=== PATIENT | female | born 1975 | race Caucasian/White ===

== ENCOUNTER 2021-08-05 12:20 | Emergency (ER) | payer BC ==
[2021-08-05 12:55] LABS: Absolute Lymphocytes (CBC) 2.3 K/uL (0.7-4.9); Hematocrit 43.8 % (36.0-45.0); Lymphocytes % 38.8 % (15.3-44.8); MPV 6.5 fL (7.6-11.3); RBC Red Blood Cell Count 4.58 M/uL (3.86-4.86)
[2021-08-05 12:57] LABS: Protime INR 0.89
[2021-08-05 13:15] LABS: ALT/SGPT 19 U/L (12-78); AST/SGOT 13 U/L (15-37); Albumin 3.9 g/dL (3.4-5.0); Alkaline Phosphatase 51 U/L (45-117); BUN Blood Urea Nitrogen 10 mg/dL (7-18); Bicarbonate 29 mmol/L (21-32); Bilirubin Direct < 0.1 mg/dL (0-0.2); Bilirubin Total 0.3 mg/dL (0.2-1.0); Glucose Level 94 mg/dL (74-106); NT PRO-BNP 10 pg/mL (<125); Potassium 3.2 mmol/L (3.5-5.1); Protein, Total 7.3 g/dL (6.4-8.2); Sodium Level 142 mmol/L (136-145)
--- NOTE | 2021-08-05 13:21 | RAD REPORT ---
EXAM DESCRIPTION: RAD - Chest Single View - 08/05/2021 1:15 pm CLINICAL HISTORY: CHEST PAIN COMPARISON: No comparisons FINDINGS: Lines: None. Lungs: No evidence of edema or pneumonia. Pleural: No significant pleural effusions or pneumothorax. Cardiac: The heart size is within normal limits. Bones: No acute fractures. Other: IMPRESSION: No acute cardiopulmonary disease.
[2021-08-05] MEDS ORDERED: ONDANSETRON 4 MG/2 ML VIAL ONE (13:23)
[2021-08-05] MEDS ORDERED: KETOROLAC 30 MG/ML INJ ONE (13:23)
--- NOTE | 2021-08-05 13:51 | RAD REPORT ---
EXAM DESCRIPTION: CT - Chest For Pe Angio - 08/05/2021 1:31 pm CLINICAL HISTORY: PALPITATIONS COMPARISON: No comparisons FINDINGS: Chest Wall: No suspicious thyroid nodules or pathologic lymphadenopathy. Lungs: No acute abnormality. Pleura: No significant effusions or pneumothorax. Mediastinum/meliton: No pathologic lymphadenopathy. Pulmonary arteries/Aorta: No filling defect identified. No aortic aneurysm. Heart: No significant pericardial effusion. Normal heart size. Upper abdomen: No acute abnormality. Partial gastrectomy. Small hiatal hernia with thickened distal e sophagus. Bones: No acute abnormality. All CT scans are performed using dose optimization technique as appropriate and may include automated exposure control or mA/KV adjustment according to patient size. IMPRESSION: Negative for pulmonary embolism. No other acute findings are present within the chest. H iatal hernia with thickened distal esophagus that may reflect esophagitis. Status post partial gastre ctomy.
--- NOTE | 2021-08-05 14:27 | EDPHYS ---
Physician Documentation [facility] Name: Amina Christianson Age: 45 yrs Sex: Female : 1975 Arrival Date: 08/05/2021 Time: 12:22 Bed 27 Private MD: ED Physician Caryn Castanon HPI: 08/05 13:21 This 45 yrs old Female presents to ER via Ambulatory with complaints of Chest Pain. sp3 13:22 45-year-old female with a history of gastric sleeve surgery, hiatal hernia, sp3 cholecystectomy, and negative heart catheterization in 2019 now presents with a 2-day history of left-sided chest pain extending into her left shoulder and left arm is described as squeezing but yet sharp in nature. Pain comes and goes and is currently present but not in its highest intensity. Patient denies headache, neck pain, fever, dyspnea, cough/URI symptoms, vomiting, diarrhea, abdominal pain, melena, syncope, near syncope, neuro symptoms, rash, known sick contacts, travel history, or any other symptoms or ROS at this time.. 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 - Social history:: Smoking status: Patient reports the use of cigarette tobacco products, smokes one pack cigarettes per day. ROS: 13:24 Constitutional: Negative for fever, chills, and weight loss, Eyes: Negative for injury, sp3 pain, redness, and discharge, ENT: Negative for injury, pain, and discharge, Neck: Negative for injury, pain, and swelling, Respiratory: Negative for shortness of breath, cough, wheezing, and pleuritic chest pain, Abdomen/GI: Negative for abdominal pain, nausea, vomiting, diarrhea, and constipation, Back: Negative for injury and pain, MS/Extremity: Negative for injury and deformity, Skin: Negative for injury, rash, and discoloration, Neuro: Negative for headache, weakness, numbness, tingling, and seizure, Psych: Negative for depression, anxiety, suicide ideation, homicidal ideation, and hallucinations, Allergy/Immunology: Negative for hives, rash, and allergies, Endocrine: Negative for neck swelling, polydipsia, polyuria, polyphagia, and marked weight changes. 13:24 All other systems are negative. Exam: 13:25 Constitutional: This is a well developed, well nourished patient who is awake, alert, sp3 and in no acute distress. Head/Face: Normocephalic, atraumatic. Eyes: Pupils equal round and reactive to light, extra-ocular motions intact. Lids and lashes normal. Conjunctiva and sclera are non-icteric and not injected. Cornea within normal limits. Periorbital areas with no swelling, redness, or edema. ENT: Nares patent. No nasal discharge, no septal abnormalities noted. External auditory canals are clear. Oropharynx with no redness, swelling, or masses, exudates, or evidence of obstruction, uvula midline. Mucous membranes moist. Neck: Trachea midline, no thyromegaly or masses palpated, and no cervical lymphadenopathy. Supple, full range of motion without nuchal rigidity, or vertebral point tenderness. No Meningismus. Chest/axilla: Normal chest wall appearance and motion. Nontender with no deformity. No lesions are appreciated. Cardiovascular: Regular rate and rhythm with a normal S1 and S2. No gallops, murmurs, or rubs. Normal PMI, no JVD. No pulse deficits. Respiratory: Lungs have equal breath sounds bilaterally, clear to auscultation and percussion. No rales, rhonchi or wheezes noted. No increased work of breathing, no retractions or nasal flaring. Abdomen/GI: Soft, non-tender, with normal bowel sounds. No distension or tympany. No guarding or rebound. No evidence of tenderness throughout. Back: No spinal tenderness. No costovertebral tenderness. Full range of motion. MS/ Extremity: Pulses equal, no cyanosis. Neurovascular intact. Full, normal range of motion. Neuro: Awake and alert, GCS 15, oriented to person, place, time, and situation. Cranial nerves II-XII grossly intact. Motor strength 5/5 in all extremities. Sensory grossly intact. Cerebellar exam normal. Normal gait. Psych: Awake, alert, with orientation to person, place and time. Behavior, mood, and affect are within normal limits. 13:25 ECG was reviewed by the Attending Physician. EKG demonstrates normal sinus rhythm at 97 bpm with normal intervals, normal QRS, normal axis, normal ST/T-segment's and no evidence of ischemia. Vital Signs: 12:24 Weight 72.57 kg; Height 5 ft. 4 in. (162.56 cm); Pain 7/10; ap3 12:28 BP 128 / 78; Pulse 104; Resp 18; Temp 99.9; Pulse Ox 100% ; ap3 12:40 BP 110 / 71; Pulse 104; Resp 13; Pulse Ox 96% on R/A; Pain 8/10; ld1 14:05 BP 108 / 96; Pulse 86; Resp 14; Pulse Ox 99% on R/A; ld1 12:24 Body Mass Index 27.46 (72.57 kg, 162.56 cm) ap3 MDM: 13:18 Patient medically screened. sp3 13:25 Data reviewed: vital signs, nurses notes. ED course: 45-year-old female with likely sp3 benign chest pain. Differential diagnosis includes pleurisy, GI disturbance, pulmonary embolism, ACS, infectious etiology in the lungs, functional chest pain. I am less suspicious of the more critical diagnoses and again patient likely has a benign source for her symptoms. Work-up will include CT scan of the chest, laboratory values, ketorolac IV, Zofran IV, and general observation.. 14:26 ED course: Full work-up is negative including CT chest that shows no pulmonary sp3 embolism, pneumonia, or other abnormality. Patient symptoms are improved with the medications given. Will discharge patient home with as needed follow-up with her senior advisor and PCP. Patient has no acute emergency at this time.. 08/05 12:34 Order name: Basic Metabolic Panel sp3 08/05 12:34 Order name: CBC with Diff; Complete Time: 14:26 sp3 08/05 12:34 Order name: LFT's sp3 08/05 12:34 Order name: Magnesium sp3 08/05 12:34 Order name: NT PRO-BNP sp3 08/05 12:34 Order name: PT-INR; Complete Time: 14: sp3 08/05 12:34 Order name: Troponin HS sp3 08/05 12:34 Order name: XRAY Chest (1 view); Complete Time: 14:26 sp3 08/05 12:34 Order name: EKG; Complete Time: 12:35 sp3 08/05 12:34 Order name: Cardiac monitoring; Complete Time: 12:39 sp3 08/05 13:17 Order name: CT Chest For PE Angio; Complete Time: 14:26 sp3 08/05 13:32 Order name: COVID-19 SARS RT PCR (Document "Date of Onset" if Symptomatic) 08/05 12:34 Order name: EKG - Nurse/Tech; Complete Time: 12:40 sp3 08/05 12:34 Order name: IV Saline Lock; Complete Time: 12:44 sp3 08/05 12:34 Order name: Labs collected and sent; Complete Time: 12:44 sp3 08/05 12:34 Order name: O2 Per Protocol; Complete Time: 12:39 sp3 08/05 12:34 Order name: O2 Sat Monitoring; Complete Time: 12:39 sp3 Administered Medications: 13:24 Drug: Ketorolac 30 mg Route: IVP; Site: right antecubital; ld1 13:24 Drug: Zofran (Ondansetron) 4 mg Route: IVP; Site: right antecubital; ld1 Disposition Summary: 08/05/21 14:27 Discharge Ordered Location: Home sp3 Condition: Stable sp3 Diagnosis - Chest pain, unspecified sp3 Discharge Instructions: - Discharge Summary Sheet sp3 - Nonspecific Chest Pain, Adult sp3 Forms: - Medication Reconciliation Form sp3 - Thank You Letter sp3 - Antibiotic Education sp3 - Prescription Opioid Use sp3 Prescriptions: - Diclofenac Sodium 75 mg Oral Tablet Sustained Release - take 1 tablet by ORAL route 2 times per day; 30 tablet; Refills: 0, Product sp3 Selection Permitted Signatures: Dispatcher [employer] Chelsey Lynne RN RN [email or web address] Barbra Rice RN RN ld1 Caryn Castanon MD MD sp3
--- NOTE | 2021-08-05 14:27 | ER ---
Nurse's Notes [facility] Name: Amina Christianson Age: 45 yrs Sex: Female : 1975 Arrival Date: 08/05/2021 Time: 12:22 Bed 27 Private MD: Diagnosis: Chest pain, unspecified Presentation: 08/05 12:24 Chief complaint: Patient states: chest pain since 1100; has had heart cath in 2019. ap3 endorses mid sternal chest pain that rdiates to back and neck. Coronavirus screen: Vaccine status: Patient reports receiving the 2nd dose of the covid vaccine. Client denies travel out of the [place] in the last 14 days. At this time, the client does not indicate any symptoms associated with coronavirus-19. Ebola Screen: Patient negative for fever greater than or equal to 101.5 degrees Fahrenheit, and additional compatible Ebola Virus Disease symptoms Patient denies exposure to infectious person. Patient denies travel to an Ebola-affected area in the 21 days before illness onset. Initial Sepsis Screen: Does the patient meet any 2 criteria? No. Patient's initial sepsis screen is negative. Does the patient have a suspected source of infection? No. Patient's initial sepsis screen is negative. Risk Assessment: Do you want to hurt yourself or someone else? Patient reports no desire to harm self or others. Onset of symptoms was August 05, 2021. 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 - Social history:: Smoking status: Patient reports the use of cigarette tobacco products, smokes one pack cigarettes per day. Screenin:40 Abuse screen: Denies threats or abuse. Denies injuries from another. Nutritional ld1 screening: No deficits noted. Tuberculosis screening: No symptoms or risk factors identified. Fall Risk None identified. Assessment: 12:40 General: Appears in no apparent distress. comfortable, Behavior is cooperative, ld1 anxious. Pain: Complains of pain in chest Pain radiates to back and neck Pain currently is 8 out of 10 on a pain scale. Quality of pain is described as pressure, throbbing, Pain began 2 hours ago. Is intermittent. Neuro: Level of Consciousness is awake, alert, obeys commands, Oriented to person, place, time, situation. Cardiovascular: Capillary refill < 3 seconds Patient's skin is warm and dry. Rhythm is sinus tachycardia. Respiratory: Airway is patent Respiratory effort is even, unlabored, Respiratory pattern is regular, symmetrical. GI: Abdomen is flat, non-distended. : No signs and/or symptoms were reported regarding the genitourinary system. EENT: No signs and/or symptoms were reported regarding the EENT system. Derm: No signs and/or symptoms reported regarding the dermatologic system. Musculoskeletal: No signs and/or symptoms reported regarding the musculoskeletal system. Vital Signs: 12:24 Weight 72.57 kg; Height 5 ft. 4 in. (162.56 cm); Pain 7/10; ap3 12:28 BP 128 / 78; Pulse 104; Resp 18; Temp 99.9; Pulse Ox 100% ; ap3 12:40 BP 110 / 71; Pulse 104; Resp 13; Pulse Ox 96% on R/A; Pain 8/10; ld1 14:05 BP 108 / 96; Pulse 86; Resp 14; Pulse Ox 99% on R/A; ld1 12:24 Body Mass Index 27.46 (72.57 kg, 162.56 cm) ap3 ED Course: 12:22 Patient arrived in ED. as 12:27 Triage completed. ap3 12:28 Arm band placed on right wrist. ap3 12:31 Barbra Rice, EVAN is Primary Nurse. ld1 12:34 Caryn Castanon MD is Attending Physician. sp3 12:40 Patient has correct armband on for positive identification. Placed in gown. Bed in low ld1 position. Call light in reach. Side rails up X2. biochemistry teacher on. Pulse ox on. NIBP on. Door closed. Noise minimized. Warm blanket given. 12:40 No provider procedures requiring assistance completed. Patient maintains SpO2 ld1 saturation greater than 95% on room air. 12:47 Inserted saline lock: 20 gauge in right antecubital area, using aseptic technique. ld1 Blood collected. 13:15 XRAY Chest (1 view) In Process Unspecified. EDMS 13:31 CT Chest For PE Angio In Process Unspecified. EDMS 13:40 COVID-19 SARS RT PCR (Document "Date of Onset" if Symptomatic) Sent. ld1 14:33 IV discontinued, intact, bleeding controlled, No redness/swelling at site. ld1 Administered Medications: 13:24 Drug: Ketorolac 30 mg Route: IVP; Site: right antecubital; ld1 13:24 Drug: Zofran (Ondansetron) 4 mg Route: IVP; Site: right antecubital; ld1 Outcome: 14:27 Discharge ordered by . sp3 14:33 Discharged to home ambulatory, with family. ld1 14:33 Condition: stable 14:33 Discharge instructions given to patient, Instructed on discharge instructions, follow up and referral plans. medication usage, Demonstrated understanding of instructions, follow-up care, medications, Prescriptions given X 1. 14:34 Patient left the ED. ld1 Signatures: Dispatcher [employer] EDMS Tangela Armijo Amanda RN RN ap3 Barbra Rice RN RN ld1 Caryn Castanon MD MD sp3
[2021-08-05 14:48] VITALS: TEMP 99.9
[2021-08-05 14:51] VITALS: BP 108/96; O2SAT 99
[2021-08-05 18:25] LABS: Magnesium 1.8
== END 2021-08-05 14:34 | disposition home or self-care (01) ==
LOC: ER 12:20
DX: R07.9 Chest pain, unspecified (principal); Z20.822 Contact with and (suspected) exposure to COVID-19; F17.210 Nicotine dependence, cigarettes, uncomplicated; Z88.5 Allergy status to narcotic agent; Z88.8 Allergy status to other drugs, medicaments and biological substances
CPT/HCPCS: 93005; 85025; 80048; 36415; 83735; 85610; 80076; 84484; 83880; 71275; 71045; 96375; 96374; 99285; U0003; Q9967; J2405

== ENCOUNTER 2024-03-31 17:30 | Emergency (ER) | payer BC, OTHER ==
[2024-03-31] MEDS ORDERED: MORPHINE 4 MG/ML SYR ONE ×2 (18:16→21:03)
[2024-03-31] MEDS ORDERED: ONDANSETRON 4 MG/2 ML VIAL ONE ×2 (18:16→21:06)
[2024-03-31 18:28] LABS: Specific Gravity 1.023 (1.005-1.030); Urine Bacteria <20 /HPF (<20); Urine Bilirubin NEGATIVE (Negative); Urine Blood Trace (Negative); Urine Clarity Extremely Turbid (Clear); Urine Color Light-Yellow (Yellow); Urine Culture Reflex Order NOT NEEDED; Urine Glucose NEGATIVE (Negative); Urine Ketones NEGATIVE (Negative); Urine Microscopic Reflex YN ORDER UMIC; Urine Mucus 1+ /HPF (None Seen); Urine Nitrite NEGATIVE (Negative); Urine Protein NEGATIVE (Negative); Urine RBC <5 /HPF (None Seen); Urine Urobilinogen Normal (Normal); Urine WBC <5 /HPF (<5); Urine pH 5.5 (5.0-7.0)
--- NOTE | 2024-03-31 18:35 | RAD REPORT ---
EXAMINATION: ONE VIEW CHEST XR CLINICAL INDICATION: Female, 48 years old.,CHEST PAIN TECHNIQUE: Frontal chest projection is submitted. Examination is limited by patient positioning and t echnique. COMPARISON: 08/05/2021 FINDINGS: The lungs are well inflated and clear. No pneumothorax or sizable effusion. The heart is normal in s ize. IMPRESSION: No acute intrathoracic abnormalities.
--- NOTE | 2024-03-31 18:35 | RAD REPORT ---
EXAMINATION: Extrem Venous W Compress [employer] CLINICAL INDICATION: [facility] MAIN PAIN Bed Name: 14 N TECHNIQUE: Complete bilateral duplex sonography of the BILATERAL lower extremity veins was performed. The examination included compression for vein patency, color Doppler imaging and flow augmentation in response to distal compression of the distal external iliac, common femoral, femoral, popliteal, t ibial, and great and small saphenous veins. COMPARISON: No prior exam. FINDINGS: Duplex sonography testing of the veins of the BILATERAL lower extremity was performed. Color flow marisabel ging shows all veins to be compressible with [id number] color filling. Pulsatile and phasic flow is present within all lower extremity deep and superficial veins examined. IMPRESSION: There is no deep vein or superficial vein thrombosis.
[2024-03-31 18:52] LABS: SARS-CoV-2 Antigen CONTROL BLUE LINE VIS/BG OK; SARS-CoV-2 Antigen Rapid Res Negative (Negative)
[2024-03-31 18:54] LABS: D-Dimer 0.623 FEUug/mL (0-0.500); PT Prothrombin Time 11.2 SECONDS (9.4-12.5)
[2024-03-31 18:56] LABS: Absolute Eosinophils 0.3 K/uL (0-0.5); Absolute Lymphocytes (CBC) 2.2 K/uL (0.7-4.9); Absolute Monocytes 0.3 K/uL (0.1-1.3); Absolute Neutrophil 4.1 K/uL (1.8-8.0); Basophils % 0.7 % (0-1.3); Hematocrit 37.3 % (36.0-45.0); Hemoglobin 12.7 g/dL (12.0-15.0); Lymphocytes % 31.4 % (15.3-44.8); MCH 31.8 pg (27.0-35.0); MCV 93.7 fL (80-100); MPV 6.6 fL (7.6-11.3); Monocytes % 4.1 % (3.3-12.3); Neutrophils % 58.8 % (41.7-73.7); Nucleated RBC Absolute Count 0.1 (0-0); Nucleated Red Blood Cells % 0.9 % (0-0); Platelets 460 thou/uL (152-406); RBC Red Blood Cell Count 3.98 M/uL (3.86-4.86); Red Cell Distribution Width 14.3 % (12.1-15.2)
[2024-03-31 19:03] LABS: ALT/SGPT 29 U/L (13-56); AST/SGOT 24 U/L (15-37); Albumin 3.5 g/dL (3.4-5.0); Albumin/Globulin Ratio 0.9 (1.1-1.8); Alkaline Phosphatase 49 U/L (45-117); Anion Gap 8.6 mEq/L (5.0-15.0); BUN Blood Urea Nitrogen 9 mg/dL (7-18); Bicarbonate 27 mEq/L (21-32); Bilirubin Total 0.3 mg/dL (0.2-1.0); Creatine Phosphokinase 53 U/L (26-192); Globulin 3.7 g/dL (2.3-3.5); Glomerular Filtration Rate 108 ml/min (=/>90); Glucose Level 86 mg/dL (74-106); Lipase 22 U/L (13-75); Magnesium 1.8 mg/dL (1.6-2.4); NT PRO-BNP 96 pg/mL (<125); Potassium 3.6 mEq/L (3.5-5.1); Protein, Total 7.2 g/dL (6.4-8.2); Sodium Level 139 mEq/L (136-145)
[2024-03-31 19:13] LABS: Bilirubin Direct < 0.2 mg/dL (0-0.2); Bilirubin Indirect, Calculated 0.1 mg/dL (0.2-0.8)
[2024-03-31] MEDS ORDERED: NA CHLORIDE 0.9% 1,000 ML ONE (19:18)
[2024-03-31] MEDS ORDERED: ASPIRIN 81 MG CHEWABLE TABLET ONE (19:18)
[2024-03-31] MEDS ORDERED: METHYLPREDNISOLONE 125 MG INJ ONE (20:25)
[2024-03-31] MEDS ORDERED: KETOROLAC 30 MG/ML INJ ONE (20:25)
--- NOTE | 2024-03-31 20:47 | RAD REPORT ---
EXAM: Chest For Pe Angio TECHNIQUE: CT angiogram of the chest was performed following intravenous contrast administration, inc luding sagittal and coronal as well as maximum intensity projection reformats. One or more of the following dose reduction techniques were used: Automated exposure control, adjustment of the mA and k V according to patient size, and iterative reconstruction. Unless otherwise specified, incidental findings do not require dedicated imaging follow-up. INDICATION: CHEST PAIN, SOB COMPARISON: Chest radiograph of the same day. CT angiogram chest 08/05/2021. FINDINGS: LINES/TUBES: None. PULMONARY ARTERIES: Main pulmonary arteries are normal in caliber. No filling defects within the pul monary arteries to suggest pulmonary embolus. LUNGS AND AIRWAYS: Subtle central left upper lobe, and to lesser extent upper segment left lower lobe patchy groundglass opacities. The central airways are normal without focal abnormality. PLEURA: No effusion or pneumothorax. HEART AND MEDIASTINUM: The visualized thyroid gland is normal. No mediastinal, hilar, or axillary lym phadenopathy. Heart is unremarkable. No pericardial effusion. SOFT TISSUES AND BONES: No acute osseous abnormality. No significant soft tissue finding. UPPER ABDOMEN: Sequelae of gastric bypass. IMPRESSION: No evidence of acute central pulmonary emboli. Left lung patchy groundglass opacities. These raise concern for multifocal pneumonitis.
--- NOTE | 2024-03-31 21:48 | EDPHYS ---
Physician Documentation [facility] Name: Amina Christianson Age: 48 yrs Sex: Female : 1975 Arrival Date: 03/31/2024 Time: 17:30 Bed 14 Private MD: ED Physician Loc Villar HPI: 03/31 18:00 This 48 yrs old Female presents to ER via Ambulatory with complaints of Chest Pain, cp Shortness Of Breath, Vomiting. 18:00 The patient or guardian reports chest pain that is located primarily in the anterior cp chest wall, mid chest. Onset: patient reports symptoms started with sudden chills, shortness of breath this past Monday. Seen at [facility] and diagnosed with pneumonia. Currently taking prescribed antibiotics but was call and told to discontinue. Patient was also diagnosed with uti. Denies cough, fever. 18:00 The chest pain is described as aching. Duration: The patient or guardian reports a cp single episode, that is still ongoing, and worsening. 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 - Infectious Disease History:: Denies. - Social history:: Smoking status: Patient reports the use of cigarette tobacco products, Reported history of juuling and/or vaping. ROS: 18:05 Constitutional: Negative for body aches, chills, fever, poor PO intake, cp 18:05 Eyes: Negative for injury, pain, redness, and discharge, cp 18:05 Cardiovascular: Positive for chest pain, 18:05 Respiratory: Positive for shortness of breath, Negative for cough, wheezing, 18:05 Abdomen/GI: Positive for nausea and vomiting, 18:05 Back: Positive for radiated pain, Exam: 17:48 ECG was reviewed by the Attending Physician. cp 18:10 Constitutional: The patient appears in no acute distress, alert, awake, cp non-diaphoretic, non-toxic, well developed, well nourished, uncomfortable, 18:10 Head/Face: Normocephalic, atraumatic. cp 18:10 Eyes: Periorbital structures: appear normal, Conjunctiva: normal, no exudate, no injection, Sclera: no appreciated abnormality, Lids and lashes: appear normal, bilaterally, 18:10 ENT: External ear(s): are unremarkable, Nose: is normal, Mouth: Lips: moist, Oral mucosa: pink and intact, moist, Posterior pharynx: Airway: no evidence of obstruction, patent, erythema, is not appreciated, exudate, is not appreciated, 18:10 Chest/axilla: Inspection: normal, 18:10 Cardiovascular: Rate: normal, Rhythm: regular, Edema: is not appreciated, JVD: is not appreciated, 18:10 Respiratory: the patient does not display signs of respiratory distress, Respirations: normal, no use of accessory muscles, no retractions, labored breathing, is not present, Breath sounds: are clear throughout, no decreased breath sounds, no stridor, no wheezing, 18:10 Abdomen/GI: Inspection: abdomen appears normal, Palpation: abdomen is soft and non-tender, in all quadrants, 18:10 Back: CVA tenderness, is absent, 18:10 Neuro: Orientation: to person, place \T\ time. Mentation: is normal, Cerebellar function: is grossly normal, Motor: moves all fours, strength is normal, Sensation: is normal, Vital Signs: 17:44 BP 132 / 70; Pulse 89; Resp 18; Temp 98.6(O); Pulse Ox 99% on R/A; Weight 83.91 kg; hb Height 5 ft. 5 in. ; Pain 7/10; 18:57 BP 114 / 77; Pulse 75; Resp 15 S; Pulse Ox 99% on R/A; kc6 19:30 BP 121 / 72; Pulse 70; Resp 17 S; Pulse Ox 99% on R/A; Pain 7/10; rg5 20:35 BP 114 / 68; Pulse 66; Resp 17; Pulse Ox 99% on R/A; rg5 21:33 BP 124 / 74; Pulse 68; Resp 17 S; Pulse Ox 96% on R/A; rg5 22:00 BP 116 / 68; Pulse 68; Resp 17; Pulse Ox 97% on R/A; rg5 17:44 Body Mass Index 30.79 (83.91 kg, 165.1 cm) hb 17:44 Pain Scale: Adult hb 19:30 Pain Scale: Adult rg5 MDM: 17:32 Patient medically screened. cp 21:45 The patient was given aspirin in the Emergency Department. cp 21:45 Differential diagnosis: abnormal EKG, acute myocardial infarction, myocarditis, cp pleurisy, pneumonia, pneumothorax, pulmonary embolus, pneumonitis. 21:46 Data reviewed: vital signs, nurses notes, lab test result(s), EKG, radiologic studies, cp CT scan, plain films, and as a result, I will discharge patient. 21:46 I considered the following discharge prescriptions or medication management in the emergency department Medications were administered in the Emergency Department. See MAR. Independent interpretation of the following test(s) in the Emergency Department EKG: See my EKG interpretation above. Counseling: I had a detailed discussion with the patient and/or guardian regarding the historical points, exam findings, and any diagnostic results supporting the discharge/admit diagnosis, lab results, radiology results, the need for outpatient follow up, a family practitioner, to return to the emergency department if symptoms worsen or persist or if there are any questions or concerns that arise at home. Response to treatment: the patient's symptoms have markedly improved after treatment, and as a result, I will discharge patient. Special discussion: Based on the patient's history, exam, and Dx evaluation, there is no indication for emergent intervention or inpatient Tx. It is understood by the patient/guardian that if the Sx's persist or worsen they need to return immediately for re-evaluation. 21:46 ED course: recommend finishing prescribed antibiotics and f/u with pcp next 2-3 days. cp return to ED worsening symptoms. 03/31 17:57 Order name: Basic Metabolic Panel; Complete Time: 19:15 cp 03/31 17:57 Order name: CBC with Diff; Complete Time: 19:15 cp 03/31 19:15 Interpretation: Normal except: PLT 460; MPV 6.6; EOSINOPHIL % 5.0. cp 03/31 17:57 Order name: D-Dimer; Complete Time: 19:15 cp 03/31 19:15 Interpretation: Abnormal: D-DIMER 0.623. cp 03/31 17:57 Order name: LFT's; Complete Time: 19:15 cp 03/31 17:57 Order name: Magnesium; Complete Time: 19:15 cp 03/31 17:57 Order name: NT PRO-BNP; Complete Time: 19:15 cp 03/31 17:57 Order name: PT-INR; Complete Time: 19:15 cp 03/31 17:57 Order name: Troponin HS; Complete Time: 19:15 cp 03/31 17:57 Order name: CK; Complete Time: 19:15 cp 03/31 17:57 Order name: Urinalysis w/ reflexes; Complete Time: 18:34 cp 03/31 18:34 Interpretation: Normal except: [facility] Extremely Turbid; UBLD Trace; UESTR 250. cp 03/31 17:58 Order name: Influenza Screen (a \T\ B); Complete Time: 19:15 cp 03/31 17:58 Order name: SARS RAPID; Complete Time: 19:15 cp 03/31 17:58 Order name: Lipase; Complete Time: 19:15 cp 03/31 17:57 Order name: XRAY Chest (1 view); Complete Time: 18:36 cp 03/31 18:36 Interpretation: Report review. cp 03/31 17:58 Order name: US Extremity Venous W Compression [place]air; Complete Time: 18:36 cp 03/31 20:01 Order name: Chest For Pe Angio; Complete Time: 20:51 EDMS 03/31 20:52 Interpretation: Report reviewed. cp 03/31 17:57 Order name: EKG; Complete Time: 17:58 cp 03/31 17:57 Order name: Cardiac monitoring; Complete Time: 18:04 cp 03/31 17:57 Order name: EKG - Nurse/Tech; Complete Time: 18:04 cp 03/31 17:57 Order name: IV Saline Lock; Complete Time: 18:59 cp 03/31 17:57 Order name: Labs collected and sent; Complete Time: 18:10 cp 03/31 17:57 Order name: O2 Per Protocol; Complete Time: 18:04 cp 03/31 17:57 Order name: O2 Sat Monitoring; Complete Time: 18:04 cp EC:48 Rate is 83 beats/min. Rhythm is regular. TN interval is normal. QRS interval is normal. cp QT interval is normal. T waves are Inverted in lead aVR. Interpreted by me. Reviewed by me. Administered Medications: 18:57 Drug: morphine IVP or IV 4 mg IVP once over 4 mins Route: IVP; Infused Over: 4 mins; kc6 Site: left upper arm; 18:57 Drug: Ondansetron IVP 4 mg IVP once; over 2 minutes Route: IVP; Site: left upper arm; kc6 19:30 Drug: NS 0.9% IV 1000 ml IV at 999 ml/hr Per protocol Route: IV; Rate: 999 ml/hr; Site: rg5 left upper arm; 22:02 Follow up: IV Status: Completed infusion; IV Intake: 1000ml rg5 19:30 Drug: Aspirin PO Chewable Tablet 324 mg PO once; 81 mg tablets x 4 Route: PO; rg5 22:02 Follow up: Response: No adverse reaction rg5 20:30 Drug: MethylPrednisoLONE IVP 125 mg IVP once Route: IVP; Site: left upper arm; rg5 22:02 Follow up: Response: No adverse reaction rg5 20:36 Drug: Ketorolac IVP 15 mg IVP once Route: IVP; Site: left upper arm; rg5 22:02 Follow up: Response: No adverse reaction; Pain is decreased rg5 21:05 Drug: morphine IVP or IV 4 mg IVP once over 4 mins Route: IVP; Infused Over: 4 mins; rg5 Site: left upper arm; 22:02 Follow up: Response: No adverse reaction; Pain is decreased rg5 21:24 Drug: Ondansetron IVP 4 mg IVP once; over 2 minutes Route: IVP; Site: left upper arm; rg5 22:03 Follow up: Response: No adverse reaction; Pain is decreased rg5 21:45 Drug: Rocephin IV 1 grams IV at calculated rate once; Given slow IV push per pharmacy rg5 instructions Route: IV; Rate: calculated rate; Site: left upper arm; 22:03 Follow up: IV Status: Completed infusion; IV Intake: 10ml rg5 21:45 Drug: AZITHromycin PO 500 mg PO once Route: PO; rg5 22:03 Follow up: Response: No adverse reaction rg5 Disposition Summary: 03/31/24 21:47 Discharge Ordered Notes: Location: Home cp Problem: new cp Symptoms: have improved cp Condition: Stable cp Diagnosis - Acute interstitial pneumonitis cp - Chest pain, unspecified cp - Nausea with vomiting, unspecified cp - Shortness of breath cp Followup: cp - With: Private Physician - When: 2 - 3 days - Reason: Recheck today's complaints Discharge Instructions: - Discharge Summary Sheet cp - Nonspecific Chest Pain, Adult cp - Nausea and Vomiting, Adult cp - Shortness of Breath, Adult cp - Pneumonitis cp Forms: - Medication Reconciliation Form cp - Antibiotic Education cp - Prescription Opioid Use cp - Patient Portal Instructions cp - Leadership Thank You Letter cp Prescriptions: - albuterol sulfate 90 mcg/actuation Inhalation HFA Aerosol Inhaler - inhale 1 puff INHALATION route every 4-6 hours as needed for shortness of cp breath or wheezing; 1 unit; Refills: 0, Product Selection Permitted - Tramadol 50 mg Oral Tablet - take 1 tablet ORAL route every 8 hours as needed; 12 tablet; Refills: 0, cp Product Selection Permitted - Medrol (Jseus) 4 mg Oral Tablets, Dose Pack - take 1 tablet ORAL route as directed - follow package instructions; 1 packet; cp Refills: 0, Product Selection Permitted - ondansetron 8 mg Oral Tablet,disintegrating - take 1 tablet ORAL route every 12 hours; 20 tablet; Refills: 0, Product cp Selection Permitted Addendum: 04/03/2024 09:45 I was immediately available for consultation during this patient's visit. I did not e c2 personally see the patient or discuss the patient with the KATHLEEN. . Signatures: Dispatcher [employer] EDMS Ronaldo Medina PA PA cp Baxter, Heather, RN RN hb Campbell, Kaitlyn, RN RN kc6 Loc Villar MD MD ec2 Jose Benavidez RN RN rg5 Corrections: (The following items were deleted from the chart) 03/31 19:59 19:17 Chest For PE Angio+[id number].RAD.BRZ ordered. EDMS EDMS
--- NOTE | 2024-03-31 21:48 | ER ---
Nurse's Notes [facility] Name: Amina Christianson Age: 48 yrs Sex: Female : 1975 Arrival Date: 03/31/2024 Time: 17:30 Bed 14 Private MD: Diagnosis: Acute interstitial pneumonitis;Chest pain, unspecified;Nausea with vomiting, unspecified;Shortness of breath Presentation: 03/31 17:44 Chief complaint: Midsternal chest pain and SOB x 5 days. Coronavirus screen: At this hb time, the client does not indicate any symptoms associated with coronavirus-19. Ebola Screen: No symptoms or risks identified at this time. Initial Sepsis Screen: Does the patient meet any 2 criteria? No. Patient's initial sepsis screen is negative. Does the patient have a suspected source of infection? No. Patient's initial sepsis screen is negative. Risk Assessment: Do you want to hurt yourself or someone else? Patient reports no desire to harm self or others. Onset of symptoms was March 27, 2024. 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 - Infectious Disease History:: Denies. - Social history:: Smoking status: Patient reports the use of cigarette tobacco products, Reported history of juuling and/or vaping. Screenin:46 [facility] ED Fall Risk Assessment (Adult) History of falling in the last 3 months, kc6 including since admission No falls in past 3 months (0 pts) Confusion or Disorientation No (0 pts) Intoxicated or Sedated No (0 pts) Impaired Gait No (0 pts) Mobility Assist Device Used No (0 pt) Altered Elimination No (0 pt) Score/Fall Risk Level 0 - 2 = Low Risk Oriented to surroundings. Abuse screen: Denies threats or abuse. Denies injuries from another. Nutritional screening: No deficits noted. Tuberculosis screening: No symptoms or risk factors identified. Assessment: 18:30 General: Appears in no apparent distress. comfortable, well groomed, well developed, kc6 Behavior is calm, cooperative, appropriate for age. Pain: Complains of pain in chest Pain does not radiate. Pain currently is 7 out of 10 on a pain scale. Neuro: Level of Consciousness is awake, alert, obeys commands, Oriented to person, place, time, situation, Appropriate for age. Cardiovascular: Reports chest pain, nausea, shortness of breath, Heart tones S1 S2 present Capillary refill < 3 seconds. Respiratory: Airway is patent Trachea midline Respiratory effort is even, unlabored, Respiratory pattern is regular, symmetrical. GI: No signs and/or symptoms were reported involving the gastrointestinal system. : No signs and/or symptoms were reported regarding the genitourinary system. EENT: No signs and/or symptoms were reported regarding the EENT system. Derm: No signs and/or symptoms reported regarding the dermatologic system. Skin is intact, is healthy with good turgor, Skin is pink, warm \T\ dry. Musculoskeletal: No signs and/or symptoms reported regarding the musculoskeletal system. Circulation, motion, and sensation intact. Capillary refill < 3 seconds, Range of motion: intact in all extremities. 19:20 General: Appears in no apparent distress. Behavior is calm, cooperative, appropriate rg5 for age. 19:20 Pain: Complains of pain in chest Pain currently is 7 out of 10 on a pain scale. Quality rg5 of pain is described as aching, Pain began 4 hours ago. Neuro: Level of Consciousness is awake, alert, obeys commands, Oriented to time, situation. Cardiovascular: Reports chest pain, Heart tones S1 S2 Capillary refill < 3 seconds Patient's skin is warm and dry. Respiratory: Reports cough that is productive. GI: No signs and/or symptoms were reported involving the gastrointestinal system. : No signs and/or symptoms were reported regarding the genitourinary system. EENT: No deficits noted. Derm: Skin is intact, is healthy with good turgor, Skin is dry, Skin is normal, Skin temperature is warm. Musculoskeletal: Circulation, motion, and sensation intact. Range of motion: intact in all extremities. 20:00 Reassessment: Patient and/or family updated on plan of care and expected duration. Pain rg5 level reassessed. Patient is alert, oriented x 3, equal unlabored respirations, skin warm/dry/pink. 21:00 Reassessment: Patient and/or family updated on plan of care and expected duration. Pain rg5 level reassessed. Patient is alert, oriented x 3, equal unlabored respirations, skin warm/dry/pink. 22:00 Reassessment: Patient and/or family updated on plan of care and expected duration. Pain rg5 level reassessed. Patient is alert, oriented x 3, equal unlabored respirations, skin warm/dry/pink. Vital Signs: 17:44 BP 132 / 70; Pulse 89; Resp 18; Temp 98.6(O); Pulse Ox 99% on R/A; Weight 83.91 kg; hb Height 5 ft. 5 in. ; Pain 7/10; 18:57 BP 114 / 77; Pulse 75; Resp 15 S; Pulse Ox 99% on R/A; kc6 19:30 BP 121 / 72; Pulse 70; Resp 17 S; Pulse Ox 99% on R/A; Pain 7/10; rg5 20:35 BP 114 / 68; Pulse 66; Resp 17; Pulse Ox 99% on R/A; rg5 21:33 BP 124 / 74; Pulse 68; Resp 17 S; Pulse Ox 96% on R/A; rg5 22:00 BP 116 / 68; Pulse 68; Resp 17; Pulse Ox 97% on R/A; rg5 17:44 Body Mass Index 30.79 (83.91 kg, 165.1 cm) hb 17:44 Pain Scale: Adult hb 19:30 Pain Scale: Adult rg5 ED Course: 17:31 Patient arrived in ED. im 17:32 Caryn Castanon MD is Attending Physician. sp3 17:32 Ronaldo Medina PA is PHCP. cp 17:40 Charmaine Hunter, EVAN is Primary Nurse. kc6 17:45 Triage completed. hb 17:46 Patient has correct armband on for positive identification. Placed in gown. Bed in low kc6 position. Call light in reach. Side rails up X 1. Adult w/ patient. case monitor on. Pulse ox on. NIBP on. Door closed. Noise minimized. Lights dimmed. Warm blanket given. Pillow given. 17:46 EKG done, by ED staff, reviewed by Ronaldo PALAFOX. Patient maintains SpO2 saturation kc6 greater than 95% on room air. 18:15 SARS RAPID Sent. kc6 18:15 Influenza Screen (a \T\ B) Sent. kc6 18:15 Urinalysis w/ reflexes Sent. kc6 18:26 US Extremity Venous W Compression Adair In Process Unspecified. EDMS 18:30 XRAY Chest (1 view) In Process Unspecified. EDMS 18:57 Missed attempt(s): 22 gauge in right antecubital area. Inserted saline lock: 22 gauge kc6 in left upper arm, using aseptic technique. Blood collected. Flushed with 10 mL NS. 19:00 Report given to EVAN Garcia. kc6 19:00 Arm band placed on right wrist. rg5 19:20 No provider procedures requiring assistance completed. rg5 20:23 Chest For Pe Angio In Process Unspecified. EDMS 21:35 Loc Villar MD is Attending Physician. cp 22:07 IV discontinued, bleeding controlled, No redness/swelling at site. Pressure dressing rg5 applied. 22:08 Provided Education on: POST ER CARE. rg5 Administered Medications: 18:57 Drug: morphine IVP or IV 4 mg IVP once over 4 mins Route: IVP; Infused Over: 4 mins; kc6 Site: left upper arm; 18:57 Drug: Ondansetron IVP 4 mg IVP once; over 2 minutes Route: IVP; Site: left upper arm; kc6 19:30 Drug: NS 0.9% IV 1000 ml IV at 999 ml/hr Per protocol Route: IV; Rate: 999 ml/hr; Site: rg5 left upper arm; 22:02 Follow up: IV Status: Completed infusion; IV Intake: 1000ml rg5 19:30 Drug: Aspirin PO Chewable Tablet 324 mg PO once; 81 mg tablets x 4 Route: PO; rg5 22:02 Follow up: Response: No adverse reaction rg5 20:30 Drug: MethylPrednisoLONE IVP 125 mg IVP once Route: IVP; Site: left upper arm; rg5 22:02 Follow up: Response: No adverse reaction rg5 20:36 Drug: Ketorolac IVP 15 mg IVP once Route: IVP; Site: left upper arm; rg5 22:02 Follow up: Response: No adverse reaction; Pain is decreased rg5 21:05 Drug: morphine IVP or IV 4 mg IVP once over 4 mins Route: IVP; Infused Over: 4 mins; rg5 Site: left upper arm; 22:02 Follow up: Response: No adverse reaction; Pain is decreased rg5 21:24 Drug: Ondansetron IVP 4 mg IVP once; over 2 minutes Route: IVP; Site: left upper arm; rg5 22:03 Follow up: Response: No adverse reaction; Pain is decreased rg5 21:45 Drug: Rocephin IV 1 grams IV at calculated rate once; Given slow IV push per pharmacy rg5 instructions Route: IV; Rate: calculated rate; Site: left upper arm; 22:03 Follow up: IV Status: Completed infusion; IV Intake: 10ml rg5 21:45 Drug: AZITHromycin PO 500 mg PO once Route: PO; rg5 22:03 Follow up: Response: No adverse reaction rg5 Medication: 19:20 VIS not applicable for this client. rg5 Intake: 22:02 IV: 1000ml; Total: 1000ml. rg5 22:03 IV: 10ml; Total: 1010ml. rg5 Outcome: 21:47 Discharge ordered by MD. cp 22:31 Discharged to home ambulatory, cp4 22:31 Condition: stable 22:31 Discharge instructions given to patient, Instructed on discharge instructions, follow up and referral plans. medication usage, Demonstrated understanding of instructions, follow-up care, medications, Prescriptions given X 4, 22:32 Patient left the ED. cp4 Signatures: Dispatcher [employer] EDMS Ronaldo Medina PA PA cp Indu Lawler, RN RN Caryn Gunter MD MD sp3 Charmaine Hunter RN RN kc6 Melba Tyson Christina cp4 Jose Benavidez RN RN rg5
[2024-03-31] MEDS ORDERED: AZITHROMYCIN 250 MG TAB ONE (21:50)
[2024-03-31] MEDS ORDERED: CEFTRIAXONE 1000 MG/VIAL ONE (21:50)
[2024-03-31 22:51] VITALS: TEMP 98.6
[2024-03-31 23:00] VITALS: BP 116/68; O2SAT 97
--- NOTE | 2024-04-01 11:52 | EKG ---
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
== END 2024-03-31 22:32 | disposition home or self-care (01) ==
LOC: ER 17:30
DX: J84.114 Acute interstitial pneumonitis (principal); R06.02 Shortness of breath; R11.2 Nausea with vomiting, unspecified; Z72.0 Tobacco use
CPT/HCPCS: 96365; 96361; 93005; 85025; 81001; 80048; 36415; 83735; 82550; 85610; 85379; 80076; 84484; 83690; 83880; 87804 ×2; 71275; 71045; 93970; 96375; 99285; 87811; Q9967; J2919; J2405 ×2; J7030; J0696